=== PATIENT | female | born 1970 | race Asian ===

== ENCOUNTER 2022-12-09 07:18 | Outpatient (CLI) | payer BC ==
[2022-12-09] VITALS (16 sets, daily range): BP systolic 97–131; BP diastolic 73–105; PULSE 54–83
== END 2022-12-09 23:59 | disposition home or self-care (01) ==
LOC: CARD DIAG 07:18
PROVIDERS: ATTEND Internal Medicine Interventional Cardiology
DX: I95.1 Orthostatic hypotension (principal)
CPT/HCPCS: 93660

== ENCOUNTER 2025-01-09 16:18 | Outpatient (CLI) | payer BC, OTHER ==
--- NOTE | 2025-01-09 17:13 | RADIOLOGY REPORT ---
CLINICAL HISTORY: OTHER SPECIFIED ANXIETY DISORDERS TECHNIQUE: Routine multiplanar imaging of the brain was performed without gadolinium contrast. COMPARISON: None FINDINGS: There is no abnormal restricted diffusion to suggest acute infarction. There are no significant chronic small vessel ischemic foci. There is no evidence for acute ischemic changes, mass, mass effect, or extra-axial fluid collection. There is no hydrocephalus or midline shift. The cerebral sulci and subarachnoid cisterns are not effa eufemia. There small right mastoid effusion. Ht the globes are intact. The midline structures, including the c orpus callosum, are unremarkable. The intracranial flow voids are maintained. IMPRESSION: No acute intracranial abnormality seen. No evidence for acute infarct. No significant white matter di sease. Small right mastoid effusion.
== END 2025-01-09 23:59 | disposition home or self-care (01) ==
LOC: MRI02 16:18
PROVIDERS: ATTEND Family Medicine
DX: S06.9X1D Unspecified intracranial injury with loss of consciousness of 30 minutes or less, subsequent encounter (principal); F41.8 Other specified anxiety disorders; H70.91 Unspecified mastoiditis, right ear; X58.XXXD Exposure to other specified factors, subsequent encounter
CPT/HCPCS: 70551